=== PATIENT | female | born 1985 | race Caucasian/White ===

== ENCOUNTER → 2016-05-19 | Outpatient (CLI) | payer BC ==
[~2016-05-19] MED LIST: PRENATAL1 TA7 PO
== END ==
LOC: COL.RAD 13:36
DX: O26.841 Uterine size-date discrepancy, first trimester (principal); Z3A.12 12 weeks gestation of pregnancy

== ENCOUNTER 2016-11-07 10:48 | Outpatient (CLI) | payer BC ==
[~2016-11-07] VITALS: Wt 67.3 kg
[2016-11-07 11:15] VITALS: BP 113/74; PULSE 92; TEMP 98.6
[2016-11-07 11:30] VITALS: BP 113/74; PULSE 92; TEMP 98.6
[2016-11-07 12:00] VITALS: BP 108/65; PULSE 88
[2016-11-07] MEDS ORDERED: PRENATAL1 TA7 PO (12:08)
[2016-11-07 12:30] VITALS: BP 108/65; PULSE 88
[2016-11-07 13:30] VITALS: BP 110/50; PULSE 76
== END 2016-11-07 14:00 | disposition home or self-care (01) ==
LOC: LDRO 10:48
DX: O32.1XX0 Maternal care for breech presentation, not applicable or unspecified (principal); Z3A.37 37 weeks gestation of pregnancy
CPT/HCPCS: J3105

== ENCOUNTER 2020-12-27 09:27 | Inpatient (IN) | payer BC ==
[~2020-12-27] VITALS: Ht 170.2 cm; Wt 74.5 kg
[2020-12-27] VITALS (25 sets, daily range): BP systolic 121–184; BP diastolic 59–91; PULSE 70–98; TEMP 98.1–98.2
--- NOTE | 2020-12-27 10:10 | NUR ---
1010- This RN assumes care of Pt. Assessment completed. Pt sent over from the office for IOL. Had high BP at home over the weekend and then were elevated today at appointment. Pt states she had swelling in her feet and ankles over the weekend, improved with rest. Denies MCNEIL, visual disturbances. Pt denies VB, LOF, or regular UCs. +FM per Pt.
[2020-12-27 10:33] LABS: COLLECTION METHOD CLEAN CATCH
[2020-12-27 10:36] LABS: BASO % 0.4 % (0.0-2.0); EOS % 0.3 % (0-4.0); GRAN % 62.4 % (42.2-75.2); HEMATOCRIT 35.4 % (37.0-47.0); HEMOGLOBIN 11.4 g/dl (12.5-16.0); LYMPH # 2.1 (1.2-3.4); LYMPH % 26.1 % (20.0-51.0); MEAN CELL VOLUME 87 fl (80.0-100.0); MEAN CORPUSCULAR HEMOGLOBIN 28 pg (27.0-31.0); MEAN CORPUSCULAR HGB CONC 32 g/dl (33.0-37.0); MEAN PLATELET VOLUME 11.6 fl (7.4-10.4); MONO # 0.8 (0.1-0.6); MONO % 10.4 % (1.7-9.3); PLATELET COUNT 187 K/mm3 (130-400); RED BLOOD COUNT 4.06 M/mm3 (4.10-5.30); REDCELL DISTRIBUTION WIDTH-CV 14.3 % (11.5-14.5)
[2020-12-27 10:41] LABS: PH 7 (5-8); URINE APPEARANCE Clear; URINE BACTERIA Rare /hpf; URINE BILIRUBIN Negative (NEGATIVE); URINE BLOOD 1+ (NEGATIVE); URINE COLOR Straw; URINE GLUCOSE Negative (NEGATIVE); URINE KETONE Negative (NEGATIVE); URINE LEUKOCYTE ESTERASE 2+ (NEGATIVE); URINE NITRATE Negative (NEGATIVE); URINE PROTEIN(semi-quant) Negative (NEGATIVE); URINE RBC 0-2 /hpf; URINE UROBILINOGEN Negative (NEGATIVE)
[2020-12-27 10:47] LABS: ALBUMIN 3.9 gm/dL (3.5-5.0); BILIRUBIN,TOTAL 0.2 mg/dL (0.0-1.0); CREATININE, serum 0.56 (0.52-1.25); POTASSIUM 4.1 mmol/L (3.4-5.0); TOTAL PROTEIN 7.4 gm/dL (6.4-8.2)
--- NOTE | 2020-12-27 12:45 | NUR ---
1228- Pt back to bed after voiding, sitting on side of bed, waiting for epidural placement. 1234- Sarah Beth Collado CRNA at bedside. O2 sat monitor on and tracing maternal HR. 1242- Test dose, see anesthesia record. 1248- Pt assisted to semi-fowlers with WL. Pt tolerated well.
--- NOTE | 2020-12-27 14:17 | NUR ---
1411- Dr Geronimo at bedside. Pt and room prepped for delivery. Mell Nursery RN at bedside. Pt begins pushing with [facility]. 1417- of viable female infant. Cord blood clamped and cut. tended to by Nursery RN. Pitocin off. 1420- Spontaneous delivery of placenta. Pitocin restarted at 333ml/hr. Fundus massaged to firm by . Perineum intact. Pericare completed. Ice pack to perineum.
--- NOTE | 2020-12-27 16:25 | NUR ---
1625- Pt ambulates to bathroom independently with RN standby assist. Voids well. Pericare completed and explained. Peripad and underwear on. Clean gown on. Pt ambulates to room well. Oriented to room. Call light within reach.
[2020-12-28 02:55] VITALS: BP 142/90; PULSE 80; TEMP 97.9
[2020-12-28 07:20] VITALS: BP 136/89; PULSE 95; TEMP 97.8
[2020-12-28] MEDS ORDERED: PERCOCET 325 MG1 TA2 PO (09:16)
[2020-12-28] MEDS ORDERED: MOTRIN 800800 MG/TAB PO (09:16)
--- NOTE | 2020-12-28 09:59 | NUR ---
Initial visit; Patient thanked Blower Room Attendant for offering congratulations and God's blessings for the of her daughter. Blower Room Attendant thanked patient for choosing [facility].
[2020-12-28 12:30] VITALS: BP 133/86; PULSE 86; TEMP 98.1
[2020-12-28 16:00] VITALS: BP 133/85; PULSE 80; TEMP 98.1
== END 2020-12-28 16:10 | disposition home or self-care (01) | DRG 807 ==
LOC: LDRO 09:27 → EDSTATUS 09:37 → OB 09:39 → LDR 09:39 → OB 16:45
PROVIDERS: ADMIT Obstetrics & Gynecology
PROC: 10E0XZZ Delivery of Products of Conception, External Approach (ICD-10-PCS; principal; 2020-12-27)
PROC: 10907ZC Drainage of Amniotic Fluid, Therapeutic from Products of Conception, Via Natural or Artificial Opening (ICD-10-PCS; 2020-12-27)
DX: O13.4 Gestational [pregnancy-induced] hypertension without significant proteinuria, complicating childbirth (principal); Z37.0 Single live birth; Z3A.38 38 weeks gestation of pregnancy
CPT/HCPCS: J2590; J3010; J7120

== ENCOUNTER 2024-01-28 09:03 | Inpatient (IN) | payer OTHER ==
[~2024-01-28] VITALS: Ht 170.2 cm; Wt 78.2 kg
[2024-01-28] VITALS (27 sets, daily range): BP systolic 110–157; BP diastolic 55–94; PULSE 84–114; TEMP 98.2–98.9
[~2024-01-28 09:03] MED LIST changes: +MOTRIN 800800 MG/TAB PO; +PERCOCET 325 MG1 TA2 PO
[2024-01-28] MEDS ORDERED: LR & Oxytocin 500 ML IV SCH (09:45)
[2024-01-28] MEDS ORDERED: LR 1,000 ML IV PRN (09:45)
[2024-01-28] MEDS ORDERED: LR 1,000 ML IV SCH ×3 (09:45→12:45)
--- NOTE | 2024-01-28 09:50 | NUR ---
PT DIRECT ADMIT FROM CLINIC PER FOR ELEVATED BP. FOB/SPOUSE SUPPORTIVE AND AT BEDSIDE. PT ORIENTED TO LABOR ROOM AND PLAN OF CARE. EFM TRACING CATEGORY 1. PT DENIES CONTRACTIONS, DENIES LOF, AND REPORTS POSITIVE MOVEMENT. INITIAL BP 144/94. PER CALL HIM WITH SBP >160 FOR TREATMENT ORDERS.
[2024-01-28] MEDS ORDERED: SLOW FE137 M1 PO (10:06)
[2024-01-28] MEDS ORDERED: ASPIRIN 81M81 MG/TA2 PO (10:06)
--- NOTE | 2024-01-28 10:20 | NUR ---
AT BEDSIDE. SVE /-2. AROM WITH CLEAR FLUID @ 1020. PT TOLERATED EXAM WELL.
[2024-01-28 10:31] LABS: BASO % 0.2 % (0.0-2.0); EOS % 0.3 % (0.0-4.0); GRAN % 69.9 % (42.2-75.2); HEMATOCRIT 34.7 % (37.0-47.0); HEMOGLOBIN 11.3 g/dl (12.5-16.0); LYMPH # 1.9 K/mm3 (1.2-3.4); LYMPH % 21.7 % (20.0-51.0); MEAN CELL VOLUME 87 fl (80.0-100.0); MEAN CORPUSCULAR HEMOGLOBIN 28 pg (27-31); MEAN CORPUSCULAR HGB CONC 33 g/dl (33.0-37.0); MEAN PLATELET VOLUME 11.1 fl (7.4-10.4); MONO # 0.6 K/mm3 (0.1-0.6); MONO % 7.3 % (1.7-9.3); PLATELET COUNT 207 K/mm3 (130-400); RED BLOOD COUNT 4.01 M/mm3 (4.10-5.30); REDCELL DISTRIBUTION WIDTH-CV 13.2 % (11.5-14.5)
[2024-01-28 10:46] LABS: ALBUMIN 2.9 g/dL (3.5-5.0); BILIRUBIN,TOTAL 0.2 mg/dL (0.2-1.2); CALCIUM 9.1 mg/dL (8.4-10.2); CREATININE, serum 0.61 mg/dL (0.57-1.11); POTASSIUM 3.5 mEq/L (3.5-4.5); TOTAL PROTEIN 6.1 g/dl (6.2-8.1)
[2024-01-28] MEDS ORDERED: ROPivacaine PF 0.2% 200 ML IV ONE (11:00)
--- NOTE | 2024-01-28 12:08 | NUR ---
PT TO SITTING POSITION ON EDGE OF BED FOR EPIDURAL PLACEMENT. MATERNAL VITAL SIGNS STABLE. CATEGORY 1 EFM TRACING. DIFFICULTY TRACING EFM DURING PROCEDURE DUE TO MATERNAL POSITIONING. 1208: TEST DOSE PER [employer], PT TOLERATED PROCEDURE WELL.
[2024-01-28] MEDS ORDERED: diphenhydrAMINE 25 MG CAP PO PRN (12:45)
[2024-01-28] MEDS ORDERED: LR 500 ML IV PRN (12:45)
[2024-01-28] MEDS ORDERED: Ondansetron 4 MG/2 ML VIAL IV PRN (12:45)
[2024-01-28] MEDS ORDERED: diphenhydrAMINE 50 MG/ML 1 ML VIAL IV PRN (12:45)
[2024-01-28] MEDS ORDERED: ePHEDrine 50 MG/10 ML VIAL IV PRN (12:45)
[2024-01-28] MEDS ORDERED: Naloxone 0.4 MG/ML VIAL IV PRN ×2 (12:45→15:30)
--- NOTE | 2024-01-28 15:09 | NUR ---
1445: PT C/O PRESSURE AND NAUSEA, STATES "I THINK SOMETHING MAY BE HAPPENING." SVE 8/-2. NOTIFIED. GRAND MULTIP, SO ROOM PREPARED FOR DELIVERY. ALL APPROPRIATE STAFF NOTIFIED. SEE PHYSICIAN NOTIFICATION. 1507: TO PT BEDSIDE, SVE COMPLETE/0 STATES. BED BROKE DOWN, ROOM AND STAFF PREPARED FOR DELIVERY. 1509: OF VIABLE FEMALE INFANT PER AT THIS TIME. STRONG CRY NOTED. INFANT PLACED ON MATERNAL ABDOMEN. CARE OF ASSUMED BY GUSTAVO VIDAL. UPON PULSATION, CORD CLAMPED X2 AND CUT BY FOB. PLACED SKIN TO SKIN WITH MOTHER, STRONG CRY CONTINUES. MATERNAL LOCHIA WNL. MATERNAL VITAL SIGNS STABLE. 1513: OF INTACT PLACENTA PER . PITOCIN BOLUS INFUSING PER PROTOCOL. PERINEUM INTACT, NO SUTURES NEEDED. FUNDUS FIRM AT UMBILICUS, LOCHIA SCANT. WILL CONTINUE WITH CARES PER POLICY.
[2024-01-28] MEDS ORDERED: Witch Hazel 50% Pads Bulk TUB TP PRN (15:30)
[2024-01-28] MEDS ORDERED: Mag/Al Hydrox/Simeth Susp 30 ML CUP PO PRN (15:30)
[2024-01-28] MEDS ORDERED: Tdap Vaccine 0.5 ML SYRINGE IM SCH (15:30)
[2024-01-28] MEDS ORDERED: Phenylephrine/Mineral Oil/Petrolatum 57 GM TUBE RC PRN (15:30)
[2024-01-28] MEDS ORDERED: Loratadine 10 MG TAB PO PRN (15:30)
[2024-01-28] MEDS ORDERED: Magnes Hydrox (MOM) 80 MG/ML 30 ML CUP PO PRN (15:30)
[2024-01-28] MEDS ORDERED: oxyCODONE 5 MG TAB PO PRN (15:30)
[2024-01-28] MEDS ORDERED: Ibuprofen 800 MG TAB PO SCH (15:30)
[2024-01-28] MEDS ORDERED: Measles/Mumps/Rubella Virus Vaccine Live w Diluent 0.5 ML VIAL SQ SCH (15:30)
[2024-01-28] MEDS ORDERED: Acetaminophen 500 MG TAB PO SCH (15:30)
[2024-01-28] MEDS ORDERED: Sennosides/Docusate 8.6-50 MG TAB PO SCH (17:00)
--- NOTE | 2024-01-28 19:15 | NUR ---
1915 UP TO BR PER HERRERA AND GENNY WELL. UNABLE TO VOID. PERICARE DONE AND MOVED TO 214. ORIENTED TO ROOM.
[2024-01-28] MEDS ORDERED: traZODone 50 MG TAB PO PRN (21:00)
[2024-01-29 03:00] VITALS: BP 116/71; PULSE 84; TEMP 98.7
[2024-01-29] MEDS ORDERED: ROXICODONE 55 MG/TAB PO (08:10)
[2024-01-29 08:15] VITALS: BP 130/77; PULSE 102; TEMP 97.9
--- NOTE | 2024-01-29 10:17 | NUR ---
Initial visit; Patient thanked Coal Trammer for offering Congratulations and God's blessings for the of her daughter. Coal Trammer thanked family for choosing [facility].
[2024-01-29 13:00] VITALS: BP 136/74; PULSE 78; TEMP 97.9
--- NOTE | 2024-01-29 17:05 | NUR ---
DISCHARGE INSTRUCTIONS REVIEWED WITH PT REGARDING FOLLOW-UP, PAIN MANAGEMENT, HOME CARE, AND REASONS TO SEE/CALL PHYSICIAN. QUESTIONS INVITED AND ANSWERED. PT VERBALIZES UNDERSTANDING.
== END 2024-01-29 17:15 | disposition home or self-care (01) | DRG 560 ==
LOC: OB 09:03 → LDR 09:35 → OB 09:35
PROVIDERS: ADMIT Obstetrics & Gynecology
PROC: 10E0XZZ Delivery of Products of Conception, External Approach (ICD-10-PCS; principal; 2024-01-28)
PROC: 10907ZC Drainage of Amniotic Fluid, Therapeutic from Products of Conception, Via Natural or Artificial Opening (ICD-10-PCS; 2024-01-28)
PROC: 3E033VJ Introduction of Other Hormone into Peripheral Vein, Percutaneous Approach (ICD-10-PCS; 2024-01-28)
DX: O14.04 Mild to moderate pre-eclampsia, complicating childbirth (principal); Z37.0 Single live birth; Z3A.37 37 weeks gestation of pregnancy
CPT/HCPCS: J2590; J2795; J7120